=== PATIENT | female | born 1985 | race Two or more races ===

== ENCOUNTER 2016-05-08 17:33 | Inpatient (IN) | payer BC ==
[~2016-05-08] VITALS: Ht 154.9 cm; Wt 66.2 kg
[2016-05-08] MEDS ORDERED: ONDANSETRON 4 MG VIAL IV PUSH PRN (18:10)
[2016-05-08] MEDS ORDERED: PHARMACY TO DOSE GENTAMICIN IV SCH (18:10)
[2016-05-08] MEDS ORDERED: PROMETHAZINE 25 MG/ML VIAL IV PRN (18:10)
[2016-05-08] MEDS ORDERED: D5-1/2-NS W/KCL 20MEQ/L 1,000 ML IV SCH (18:10)
[2016-05-08] MEDS ORDERED: ZOLPIDEM 5 MG TAB PO PRN (18:10)
[2016-05-08] MEDS ORDERED: **NOTE TO NURSE XX SCH (18:27)
[2016-05-08] MEDS: CLINDAMYCIN 900 MG in DEXTROSE 5% 50 ML IV SCH ×2 (18:48→23:52)
[2016-05-08 18:50] VITALS: Ht 154.9 cm; Wt 66.2 kg
[2016-05-08 19:00] VITALS: BP_SYST 116; RESP 18; TEMP 103.3
[2016-05-08] MEDS ORDERED: GENTAMICIN 280 MG in SODIUM CHLORIDE 0.9% 100 ML IV ONE (19:00)
[2016-05-08] MEDS ORDERED: OPTIRAY 350 100 ML VIAL HMH IV ONE (19:18)
[2016-05-08] MEDS ORDERED: ACETAMINOPHEN 325 MG TAB PO PRN (19:45)
[2016-05-08] MEDS: KETOROLAC 30 MG/ML VIAL IV PRN (20:07)
[2016-05-08] MEDS: AMPICILLIN 2,000 MG in SODIUM CHLORIDE 0.9% 100 ML IV SCH (21:31)
[2016-05-08 21:49] VITALS: TEMP 100
[2016-05-08] MEDS ORDERED: SALINE FLUSH 10 ML FLUSH PRN (22:55)
[2016-05-08] MEDS ORDERED: SODIUM CHLORIDE 0.9% FLUSH BAG 500 ML IV PRN (22:55)
[2016-05-08 23:49] VITALS: BP_SYST 108; RESP 18; TEMP 98.9
[2016-05-09] MEDS: AMPICILLIN 2,000 MG in SODIUM CHLORIDE 0.9% 100 ML IV SCH ×5 (00:22→23:25)
[2016-05-09] MEDS: KETOROLAC 30 MG/ML VIAL IV PRN (03:29)
[2016-05-09 03:44] VITALS: BP_SYST 98; RESP 18; TEMP 98.9
[2016-05-09] MEDS: LEVOTHYROXINE 0.05 MG TAB PO SCH (05:55)
[2016-05-09 07:56] VITALS: BP_SYST 103; RESP 18; TEMP 97.8
[2016-05-09] MEDS: SALINE FLUSH 10 ML FLUSH SCH ×2 (08:00→19:49)
[2016-05-09] MEDS: CLINDAMYCIN 900 MG in DEXTROSE 5% 50 ML IV SCH ×3 (08:15→23:25)
[2016-05-09] MEDS: FOLIC ACID 1 MG TAB PO SCH (09:14)
[2016-05-09 11:30] VITALS: BP_SYST 89; RESP 18; TEMP 97.3
[2016-05-09 16:00] VITALS: BP_SYST 94; RESP 16; TEMP 98.1
[2016-05-09] MEDS: GENTAMICIN 280 MG in SODIUM CHLORIDE 0.9% 100 ML IV SCH (19:50)
[2016-05-09] MEDS ORDERED: GENTAMICIN 80MG/2ML VIAL IV SCH (20:00)
[2016-05-09 20:05] VITALS: BP_SYST 102; RESP 16; TEMP 98.6
[2016-05-09 23:36] VITALS: BP_SYST 100; RESP 16; TEMP 98.3
[2016-05-10 05:00] VITALS: BP_SYST 104; RESP 16; TEMP 97.8
[2016-05-10] MEDS: AMPICILLIN 2,000 MG in SODIUM CHLORIDE 0.9% 100 ML IV SCH ×4 (05:39→23:17)
[2016-05-10] MEDS: LEVOTHYROXINE 0.05 MG TAB PO SCH (06:32)
[2016-05-10] MEDS: SALINE FLUSH 10 ML FLUSH SCH ×2 (09:01→19:39)
[2016-05-10] MEDS: CLINDAMYCIN 900 MG in DEXTROSE 5% 50 ML IV SCH ×2 (09:01→16:54)
[2016-05-10] MEDS: FOLIC ACID 1 MG TAB PO SCH (09:01)
[2016-05-10 09:21] VITALS: BP_SYST 105; RESP 16; TEMP 97.9
[2016-05-10 13:37] VITALS: BP_SYST 107; RESP 18; TEMP 98.1
[2016-05-10 16:53] VITALS: BP_SYST 108; RESP 16; TEMP 98
[2016-05-10] MEDS: GENTAMICIN 280 MG in SODIUM CHLORIDE 0.9% 100 ML IV SCH (19:38)
[2016-05-10 19:50] VITALS: BP_SYST 106; RESP 16; TEMP 97.9
[2016-05-10 23:15] VITALS: BP_SYST 95; RESP 12; TEMP 98.3
[2016-05-11] MEDS: CLINDAMYCIN 900 MG in DEXTROSE 5% 50 ML IV SCH ×2 (00:49→08:08)
[2016-05-11 05:17] VITALS: BP_SYST 98; RESP 16; TEMP 97.9
[2016-05-11] MEDS: AMPICILLIN 2,000 MG in SODIUM CHLORIDE 0.9% 100 ML IV SCH (05:17)
[2016-05-11] MEDS: LEVOTHYROXINE 0.05 MG TAB PO SCH (06:11)
[2016-05-11 07:00] VITALS: BP_SYST 90; RESP 18; TEMP 97.9
[2016-05-11] MEDS ORDERED: MISSING DOSE XX ONE (07:50)
[2016-05-11] MEDS: FOLIC ACID 1 MG TAB PO SCH (08:08)
[2016-05-11 11:12] VITALS: BP_SYST 90; RESP 18; TEMP 97.9
== END 2016-05-11 12:54 | disposition home or self-care (01) | DRG 776 ==
LOC: PED 18:04
PROVIDERS: ADMIT Obstetrics & Gynecology; ATTEND Obstetrics & Gynecology
DX: O86.12 Endometritis following delivery (principal)
CPT/HCPCS: 72193